=== PATIENT | female | born 1945 | race Two or more races ===

== ENCOUNTER 2018-07-17 11:44 | Inpatient (IN) | payer OTHER ==
[~2018-07-17] VITALS: Ht 121.9 cm; Wt 67.1 kg
[2018-07-17] MEDS ORDERED: FORTAMET1000 MG PO (12:11)
[2018-07-17] MEDS ORDERED: NITROSTAT0.3 MG SL (12:12)
[2018-07-17] MEDS ORDERED: DITROPAN XL5 MG PO (12:12)
[2018-07-17] MEDS ORDERED: ATORVASTATIN CA20 MG PO (12:12)
[2018-07-17] MEDS ORDERED: ISOSORBIDE DINI30 MG PO (12:12)
[2018-07-17] MEDS ORDERED: XARELTO20 MG PO (12:12)
[2018-07-17] MEDS ORDERED: GABAPENTIN300 MG PO (12:13)
[2018-07-17] MEDS ORDERED: SPRITAM250 MG PO (12:13)
[2018-07-17] MEDS ORDERED: LASIX20 MG PO (12:13)
[2018-07-17] MEDS ORDERED: CILOSTAZOL50 MG PO (12:13)
[2018-07-17] MEDS ORDERED: CARVEDILOL12.5 MG PO (12:14)
[2018-07-17] MEDS ORDERED: ENTRESTO 24 MG1 EACH PO (12:14)
[2018-07-17] MEDS ORDERED: BENTYL10 MG/1 ML IM (12:14)
[2018-07-25] MEDS ORDERED: MEROPENEM1 GM IV (09:02)
== END 2018-07-25 16:25 | disposition home or self-care (01) | DRG 871 ==
LOC: ER 11:44 → ICU-2 15:19 → MEDJ 07-22 15:56
PROC: B246ZZZ Ultrasonography of Right and Left Heart (ICD-10-PCS; principal; 2018-07-18)
PROC: 02HV33Z Insertion of Infusion Device into Superior Vena Cava, Percutaneous Approach (ICD-10-PCS; 2018-07-19)
PROC: 3E0F7GC Introduction of Other Therapeutic Substance into Respiratory Tract, Via Natural or Artificial Opening (ICD-10-PCS; 2018-07-20)
DX: A41.9 Sepsis, unspecified organism (principal); I21.A1 Myocardial infarction type 2; I50.33 Acute on chronic diastolic (congestive) heart failure; R65.21 Severe sepsis with septic shock; E87.2 Acidosis; N17.8 Other acute kidney failure; N39.0 Urinary tract infection, site not specified; B96.29 Other Escherichia coli [E. coli] as the cause of diseases classified elsewhere; E11.649 Type 2 diabetes mellitus with hypoglycemia without coma; R42 Dizziness and giddiness; E78.49 Other hyperlipidemia; E87.5 Hyperkalemia; E11.40 Type 2 diabetes mellitus with diabetic neuropathy, unspecified; I25.10 Atherosclerotic heart disease of native coronary artery without angina pectoris; I48.0 Paroxysmal atrial fibrillation; I10 Essential (primary) hypertension; G47.33 Obstructive sleep apnea (adult) (pediatric); Z93.3 Colostomy status; Z95.0 Presence of cardiac pacemaker; Z86.73 Personal history of transient ischemic attack (TIA), and cerebral infarction without residual deficits; Z85.038 Personal history of other malignant neoplasm of large intestine; Z16.12 Extended spectrum beta lactamase (ESBL) resistance; Z88.0 Allergy status to penicillin

== ENCOUNTER 2018-08-02 05:53 | Emergency (ER) | payer OTHER ==
[~2018-08-02] VITALS: Ht 152.4 cm; Wt 69.9 kg
[~2018-08-02 05:53] MED LIST: ATORVASTATIN CA20 MG PO; BENTYL10 MG/1 ML IM; CARVEDILOL12.5 MG PO; CILOSTAZOL50 MG PO; DITROPAN XL5 MG PO; ENTRESTO 24 MG1 EACH PO; FORTAMET1000 MG PO; GABAPENTIN300 MG PO; ISOSORBIDE DINI30 MG PO; LASIX20 MG PO; MEROPENEM1 GM IV; NITROSTAT0.3 MG SL; SPRITAM250 MG PO; XARELTO20 MG PO
[2018-08-02] MEDS ORDERED: METFORMIN HCL1000 MG (06:07)
[2018-08-02] MEDS ORDERED: DICY20TA (06:08)
[2018-08-02] MEDS ORDERED: CRESTOR20 MG (06:08)
== END 2018-08-02 11:23 | disposition home or self-care (01) ==
LOC: ER 05:53
DX: Z45.2 Encounter for adjustment and management of vascular access device (principal)